=== PATIENT | male | born 1960 | race Caucasian/White ===

== ENCOUNTER → 2022-07-22 08:40 | Outpatient (BNVA) | payer SELFPAY | PROVIDERS: Family Provider Family Medicine; PCP Family Medicine; Visit Provider Family Medicine | DX: Z01.89 Encounter for other specified special examinations (principal) ==

== ENCOUNTER → 2023-09-11 08:07 | Outpatient (BNVA) | payer SELFPAY | PROVIDERS: Family Provider Family Medicine; PCP Family Medicine; Visit Provider Family Medicine | DX: R25.2 Cramp and spasm (principal); R68.82 Decreased libido; R79.89 Other specified abnormal findings of blood chemistry | CPT/HCPCS: 82040; 83735; 84270; 84403; 84439; 84443 ==

== ENCOUNTER → 2024-07-21 08:15 | Outpatient (BNVA) | payer SELFPAY | PROVIDERS: Family Provider Family Medicine; PCP Family Medicine; Visit Provider Family Medicine | DX: Z01.89 Encounter for other specified special examinations (principal) | CPT/HCPCS: 83721 ==

== ENCOUNTER 2024-09-28 07:11 | Outpatient (CLI) | payer SELFPAY ==
--- NOTE | 2024-09-28 07:15 | US_ITS ---
WS: [id number] TESTICULAR ULTRASOUND HISTORY: left testicular pain COMPARISON: None available. TECHNIQUE: Real-time and color Doppler imaging utilized to perform a testicular ultrasound. Right testicle: 3.9 cm x 2.5 cm x 1.8 cm. Normal size and echogenicity. No mass or torsion. Normal color Doppler is present throughout. Systolic and diastolic velocities are both present. No significant hydrocele. Right epididymis: Normal epididymis with no increased vascularity. Left testicle: 3.5 cm x 2.1 cm x 1.7 cm. Normal size and echogenicity. No mass or torsion. Normal color Doppler is present throughout. Systolic and diastolic velocities are both present. No significant hydrocele. Left epididymis: Normal epididymis with no increased vascularity. Prominent pampiniform plexus on the LEFT. The diameter of these vessels is less than 3 mm. No Valsalva maneuver performed. US/US scrotum [id number] IMPRESSION: 1. No testicular mass or torsion. 2. Prominent pampiniform plexus. Diameter of the vessels is not consistent wit h a varicocele but no Valsalva maneuver was performed by the caterer helper. Indet erminate for left-sided varicocele.
== END 2024-09-28 07:12 | disposition home or self-care (01) ==
LOC: RAD 07:12
PROVIDERS: PCP Family Medicine; Visit Provider Family Medicine
DX: N50.812 Left testicular pain (principal)
CPT/HCPCS: 76870

== ENCOUNTER → 2024-10-20 07:51 | Outpatient (BNVA) | payer SELFPAY | PROVIDERS: PCP Family Medicine; Visit Provider Dermatology | DX: Z01.89 Encounter for other specified special examinations (principal); R26.89 Other abnormalities of gait and mobility; R79.89 Other specified abnormal findings of blood chemistry | CPT/HCPCS: 82607; 82746; 84439; 84443 ==

== ENCOUNTER 2024-11-14 07:36 | Outpatient (CLI) | payer SELFPAY ==
--- NOTE | 2024-11-14 07:15 | MR_ITS ---
WS: [id number] MRI BRAIN WITHOUT CONTRAST HISTORY: gait abnormality, falls (unexpected for age/health) COMPARISON: None available. TECHNIQUE: Diffusion imaging, multiplanar T1, T2 and FLAIR imaging obtained. No evidence for acute infarct or hemorrhage. Callaway-white matter differentiation is normal. Mild symmetric cerebral atrophy. This is mild diffuse atrophy. No prior infarcts. No hemorrhage. Hippocampal formations are normal. Ventricles and extra-axial spaces are normal. No inferior displacement of cerebellar tonsils. The sella turcica and pituitary gland are unremarkable. Dural venous sinuses and [place] of [place] demonstrate no abnormality on this unenhanced studies. Paranasal sinuses: Clear. Mastoid air cells: Normal. Calvarium and scalp: Intact. MR/MR head wo con* [id number] IMPRESSION: 1. Normal diffusion imaging. 2. No hemorrhage or prior infarct. 3. Mild symmetric cerebral atrophy. No significant small vessel disease. 4. Normal hippocampal formations.
== END 2024-11-14 07:37 | disposition home or self-care (01) ==
PROVIDERS: PCP Family Medicine; Visit Provider Family Medicine
DX: R26.89 Other abnormalities of gait and mobility (principal); G31.89 Other specified degenerative diseases of nervous system; Z91.81 History of falling
CPT/HCPCS: 70551

== ENCOUNTER → 2024-11-22 15:02 | Outpatient (BNVA) | payer SELFPAY | PROVIDERS: PCP Family Medicine; Visit Provider Family Medicine | DX: R26.89 Other abnormalities of gait and mobility (principal) | CPT/HCPCS: 86617 ==